=== PATIENT | male | born 2000 | race African-American/Black ===

== ENCOUNTER 2021-03-11 10:35 | Emergency (ER) | payer OTHER ==
[~2021-03-11] VITALS: Ht 162.6 cm; Wt 59.0 kg
[2021-03-11 11:16] LABS: CLARITY,URINE CLEAR (CLEAR); COLOR,URINE YELLOW (YELLOW); KETONES,URINE NEGATIVE (NEGATIVE); LEUKOCYTE ESTERASE ,URINE NEGATIVE (NEGATIVE); NITRITE,URINE NEGATIVE (NEGATIVE); PROTEIN,URINE DIPSTICK NEGATIVE (NEGATIVE); URINE UROBILINOGEN 1 mg/dL (0.2 - 1)
[2021-03-11 11:33] LABS: BACTERIA,URINE RARE /HPF; RBC,URINE 0-5 /HPF (0-5); WBC,URINE (MAN) 0-5 /HPF (0-5)
[2021-03-11 11:34] LABS: EPITHELIAL CELLS,URINE RARE /LPF
[2021-03-11] MEDS ORDERED: CIPRO500 MG PO (13:14)
== END 2021-03-11 13:41 | disposition home or self-care (01) ==
LOC: ER 10:42
DX: N50.811 Right testicular pain (principal); N45.1 Epididymitis
CPT/HCPCS: 76870; 81001; 93976; 99283